=== PATIENT | male | born 1985 | race Caucasian/White ===

== ENCOUNTER 2021-12-20 23:10 | Emergency (ER) | payer BC ==
[~2021-12-20] VITALS: Ht 180.3 cm; Wt 81.8 kg
[2021-12-21 00:10] VITALS: BP 125/85; PULSE 68; TEMP 102
== END 2021-12-21 00:12 | disposition home or self-care (01) ==
LOC: COL.ER 23:10
DX: U07.1 COVID-19 (principal)